=== PATIENT | female | born 1975 ===

== ENCOUNTER 2016-08-07 06:00 | Emergency (ER) | payer BC ==
[2016-08-07 06:11] VITALS: RESP 18
--- NOTE | 2016-08-07 06:51 | C.PDOC ---
History Of Present Illness 40 y/o female presents to ED with complaints of runny nose, congestion, and non- productive cough for 4 days. Denies fever. Tried OTC cold medications but cough persists. Denies sore throat, chest pain, shortness of breath, or other assoc sx. Time Seen by Provider: 08/07/16 06:47 Chief Complaint (Nursing): Cough, Cold, Congestion History Per: Patient History/Exam Limitations: no limitations Onset/Duration Of Symptoms: Days (4) Current Symptoms Are (Timing): Still Present Sick Contacts (Context): None Associated Symptoms: Cough, Sinus Drainage, Nasal Congestion. denies: Fever, Sore Throat, Myalgias, Vomiting, Diarrhea Ear Symptoms: Bilateral: None Recent travel outside of the [place]: No Past Medical History Reviewed: Historical Data, Nursing Documentation, Vital Signs Vital Signs: Last Vital Signs Temp 98.2 F 08/07/16 06:08 Pulse 82 08/07/16 06:08 Resp 18 08/07/16 06:08 BP 121/87 08/07/16 06:08 Pulse Ox 100 08/07/16 06:51 - Medical History PMH: Back Problems, HIV, Migraine Family History: States: Unknown Family Hx - Social History Hx Tobacco Use: No Hx Alcohol Use: Yes Hx Substance Use: No - Immunization History Hx Tetanus Toxoid Vaccination: No Hx Influenza Vaccination: No Hx Pneumococcal Vaccination: No Review Of Systems Except As Marked, All Systems Reviewed And Found Negative. Constitutional: Negative for: Fever, Chills ENT: Positive for: Nose Discharge, Nose Congestion. Negative for: Throat Pain Respiratory: Positive for: Cough. Negative for: Shortness of Breath, Sputum, Wheezing Gastrointestinal: Negative for: Nausea, Vomiting, Abdominal Pain Skin: Negative for: Rash Neurological: Negative for: Headache, Dizziness Physical Exam - Physical Exam Appears: Non-toxic, No Acute Distress, Other (dry cough) Skin: Warm, Dry Head: Atraumatic, Normacephalic Eye(s): bilateral: Normal Inspection, PERRL, EOMI Ear(s): Bilateral: Normal Nose: Discharge (+clear rhinorrhea), Other ((+) sinus congestion) Oral Mucosa: Moist Throat: Normal, No Erythema, No Exudate Neck: Normal ROM, Supple Chest: Symmetrical Cardiovascular: Rhythm Regular, No Murmur Respiratory: Normal Breath Sounds, No Rales, No Rhonchi, No Wheezing Gastrointestinal/Abdominal: Soft, No Tenderness, No Guarding, No Rebound Back: Normal Inspection Extremity: Normal ROM, Capillary Refill (< 2 sec. ) Neurological/Psych: Oriented x3, Normal Speech, Normal Cognition ED Course And Treatment O2 Sat by Pulse Oximetry: 100 (RA) Pulse Ox Interpretation: Normal - Radiology CXR: Interpreted by Me CXR Interpretation: Yes: No Acute Disease Progress - Re-Evaluation Re-evaluation Note: 08/07/16 06:56 CxR reviewed, negative for acute disease. Treated w/ Tessalon and Sudafed. Pt improved on reevaluation. Advised f/u with PMD/clinic Disposition Counseled Patient/Family Regarding: Studies Performed, Diagnosis, Need For Followup, Rx Given - Disposition Referrals: Juan Carrillo MD [Primary Care Provider] - Disposition: HOME/ ROUTINE Disposition Time: 06:51 Condition: GOOD Prescriptions: Benzonatate [Tessalon Perles] 200 mg PO TID PRN #15 sgl PRN Reason: Cough Pseudoephedrine HCl [Sudafed 24 Hour] 240 mg PO DAILY PRN #1 unit PRN Reason: Sinus Symptoms Instructions: Rhinosinusitis (ED), Acute Cough (ED) - Clinical Impression Clinical Impression: Sinusitis, Cough - Scribe Statement The provider has reviewed the documentation as recorded by the Harley Rodriguez Provider Scribe Attestation: All medical record entries made by the Scribe were at my direction and personally dictated by me. I have reviewed the chart and agree that the record accurately reflects my personal performance of the history, physical exam, medical decision making, and the department course for this patient. I have also personally directed, reviewed, and agree with the discharge instructions and disposition.
[2016-08-07 07:04] VITALS: BP 116/82; PULSE 78; TEMP 98.4; O2SAT 99
--- NOTE | 2016-08-07 09:17 | RAD ---
HISTORY: COUGH COMPARISON: No prior. TECHNIQUE: Chest PA and lateral FINDINGS: LUNGS: No active pulmonary disease. PLEURA: No significant pleural effusion identified. No pneumothorax apparent. CARDIOVASCULAR: Normal. OSSEOUS STRUCTURES: No significant abnormalities. VISUALIZED UPPER ABDOMEN: Normal. OTHER FINDINGS: None. IMPRESSION: No active disease.
== END 2016-08-07 07:04 | disposition home or self-care (01) ==
LOC: C.ER 06:00 → SUPCPDRO 06:00 → C.ER 07:04
DX: J32.9 Chronic sinusitis, unspecified (principal); R05 Cough